=== PATIENT | female | born 1965 | race Caucasian/White ===

== ENCOUNTER 2023-06-02 14:20 | Outpatient (CLI) | payer BC | END 2023-06-02 14:21 | disposition home or self-care (01) | LOC: CSHULT 14:20 | PROVIDERS: ATTEND Family Medicine | DX: R31.9 Hematuria, unspecified (principal) | CPT/HCPCS: 76770 ==

== ENCOUNTER 2023-06-24 12:05 | Outpatient (CLI) | payer BC | END 2023-06-24 12:06 | disposition home or self-care (01) | LOC: CSHMRI 12:05 | PROVIDERS: ATTEND Orthopaedic Surgery | DX: M23.92 Unspecified internal derangement of left knee (principal); M94.8X6 Other specified disorders of cartilage, lower leg; M25.462 Effusion, left knee ==